=== PATIENT | male | born 1990 ===

== ENCOUNTER 2018-08-15 10:20 | Emergency (ER) | payer BC ==
[2018-08-15 10:25] VITALS: O2SAT 100
--- NOTE | 2018-08-15 11:29 | C.PDOC ---
History Of Present Illness 28 y/o male comes in complaining of a sore throat for the past month. Patient denies fever, nausea, vomiting, cough, pain, or other symptoms. States he has not seen a doctor because he did not have one. Patient took ampicillin that he had at home, it was not prescribed to him. Time Seen by Provider: 08/15/18 10:31 Chief Complaint (Nursing): Flu-like Symptoms History Per: Patient History/Exam Limitations: no limitations Onset/Duration Of Symptoms: Days Current Symptoms Are (Timing): Still Present Past Medical History Reviewed: Historical Data, Nursing Documentation, Vital Signs Vital Signs: Last Vital Signs Temp 98.1 F 08/15/18 10:23 Pulse 76 08/15/18 10:23 Resp 18 08/15/18 10:23 BP 116/78 08/15/18 10:23 Pulse Ox 100 08/15/18 10:23 Family History: States: No Known Family Hx - Social History Hx Alcohol Use: No Hx Substance Use: No - Immunization History Hx Tetanus Toxoid Vaccination: No Hx Influenza Vaccination: No Hx Pneumococcal Vaccination: No Review Of Systems Constitutional: Negative for: Fever ENT: Positive for: Other (Sore throat) Cardiovascular: Negative for: Chest Pain Respiratory: Negative for: Cough, Shortness of Breath Gastrointestinal: Negative for: Nausea, Vomiting Neurological: Negative for: Weakness, Numbness Physical Exam - Physical Exam Appears: Non-toxic, No Acute Distress Skin: Warm, Dry Head: Atraumatic, Normacephalic Eye(s): bilateral: Normal Inspection Oral Mucosa: Moist Throat: Erythema (mild), No Exudate, No Other (swelling) Neck: Supple Chest: Symmetrical Cardiovascular: Rhythm Regular, No Murmur Respiratory: Normal Breath Sounds, No Rales, No Rhonchi, No Wheezing Gastrointestinal/Abdominal: Soft, No Tenderness Extremity: Bilateral: Atraumatic, Normal Color And Temperature, Normal ROM Neurological/Psych: Oriented x3, Normal Speech ED Course And Treatment O2 Sat by Pulse Oximetry: 100 (RA) Pulse Ox Interpretation: Normal Medical Decision Making Medical Decision Making: Plan: --Flu swab --Strep swab Both swabs negative. Patient had unremarkable pharynx exam. Advised outpatient followup as needed. Return to the ED for any new or worsening symptoms. Drink plenty of fluids and use a humidifier as sore throat could be from dryness. Disposition - Disposition Disposition: HOME/ ROUTINE Disposition Time: 12:48 Condition: GOOD Additional Instructions: EDMUNDO YBARRA, thank you for letting us take care of you today. Your provider was Erika Crow MD and you were treated for RT SIDE NECK/EAR PAIN. The emergency medical care you received today was directed at your acute symptoms. If you were prescribed any medication, please fill it and take as directed. It may take several days for your symptoms to resolve. Return to the Emergency Department if your symptoms worsen, do not improve, or if you have any other problems. Please contact your doctor or call one of the physicians/clinics you have been r eferred to that are listed on the Patient Visit Information form that is included in your discharge packet. Bring any paperwork you were given at discharge with you along with any medications you are taking to your follow up visit. Our treatment cannot replace ongoing medical care by a primary care provider outside of the emergency department. Thank you for allowing the [facility] team to be part of your care today. If you had an X-Ray or CT scan: A Radiologist will review the ED reading if any change in treatment is needed we will contact you. If you had a blood, urine, or wound culture: It will take several days for the results, if any change in treatment is needed we will contact you. If you had an STI test: It will take 48 hours for the results. Please call after 1 week if you have not heard back. Instructions: Sore Throat, Adult (DC) Forms: Gen Discharge Inst Pakistani, [place] (Pakistani), Work Excuse Print Language: [place]LAND[place] - Clinical Impression Clinical Impression: Sore throat - Scribe Statement The provider has reviewed the documentation as recorded by the Sindyibfariba Bhatt Provider Attestation: All medical record entries made by the Cirilo were at my direction and pers onally dictated by me. I have reviewed the chart and agree that the record accurately reflects my personal performance of the history, physical exam, medical decision making, and the department course for this patient. I have also personally directed, reviewed, and agree with the discharge instructions and disposition.
[2018-08-15 12:15] VITALS: BP 105/66; PULSE 65; RESP 20; TEMP 97.9
== END 2018-08-15 12:53 | disposition home or self-care (01) ==
LOC: C.ER 10:20
DX: J02.9 Acute pharyngitis, unspecified (principal)